=== PATIENT | male | born 1990 | race Caucasian/White ===

== ENCOUNTER 2017-10-26 17:37 | Emergency (ER) | payer OTHER ==
[~2017-10-26] VITALS: Ht 172.7 cm; Wt 79.4 kg
[~2017-10-26 17:37] MED LIST: ANTIPYRINE-BENZ10 ML OT; BACTRIM DS TAB1 EACH PO; CORTISPORIN OTI10 M2 OTIC; HYDROCODON-ACE1 EAC7 PO; KEFLEX500 MG PO; NAPROSYN500 MG PO; NOHOMEMEDICATIONS; NORCO 5-325 TA1 EACH PO; PREDNISONE 20 M20 M1 PO; PROVENTIL IH; SUDAFED30 MG PO; ZPAK PO
[2017-10-26] MEDS ORDERED: NAPROSYN500 MG PO (18:56)
== END 2017-10-26 19:00 | disposition home or self-care (01) ==
LOC: ER 17:37
DX: L02.01 Cutaneous abscess of face (principal); F17.210 Nicotine dependence, cigarettes, uncomplicated; Z88.5 Allergy status to narcotic agent

== ENCOUNTER 2020-04-03 20:44 | Emergency (ER) | payer OTHER ==
[~2020-04-03] VITALS: Ht 175.3 cm; Wt 104.3 kg
[2020-04-03] MEDS ORDERED: ADDERALL XR 3030 MG PO (21:08)
[2020-04-03 21:38] LABS: ABSOLUTE NEUTROPHILS 3.8 thou/uL (1.4-8.2); EOSINOPHILS 2.4 % (0.0-3.0); HEMATOCRIT 42.2 % (42.0-52.0); HEMOGLOBIN 14.5 gm/dL (14.0-18.0); LYMPHOCYTES 37.9 % (24.0-44.0); MCH 30.7 pg (26.0-34.0); MCHC 34.3 g/dL (28.0-37.0); MCV 89.6 fL (80.0-100.0); MONOCYTES 10.3 % (1.0-8.0); PLATELET COUNT 264 thou/uL (150-400); POLYS 48.4 % (36.0-66.0); RDW 13.3 % (10.5-14.5); WBC 7.8 thou/uL (4.0-11.0)
[2020-04-03 21:46] LABS: ANION GAP 5 mmol/L (7-16); BUN 13 mg/dL (7-18); CALCIUM 8.3 mg/dL (8.5-10.1); CHLORIDE 102 mmol/L (98-107); CO2 30 mmol/L (21-32); GLUCOSE 112 mg/dL (74-106); POTASSIUM 3.6 mmol/L (3.5-5.1); SODIUM 137 mmol/L (136-145)
[2020-04-03 21:56] LABS: ALBUMIN 3.5 g/dL (3.4-5.0); LIPASE 114 U/L (73-393); SGOT 28 U/L (15-37); SGPT 36 U/L (30-65); TOTAL BILIRUBIN 0.2 mg/dL (0.2-1.0); TOTAL PROTEIN 6.9 g/dL (6.4-8.2); TROPONIN-I <0.06 ng/mL (<0.06)
[2020-04-03 22:52] VITALS: BP 152/90
--- NOTE | 2020-04-04 08:46 | EKG ---
[facility] [place] [address] ELECTROCARDIOGRAM REPORT Name: LUCIANA LAKHANI Room #: DEP [facility]#: [id number] Admission: 04/03/20 Attend Phys: Discharge: 04/03/20 Date of : 86 Report #: [id number] THIS REPORT FOR: cc: Georgina Corona Christine L. DO Lundgren,Yaya Jenkins MD [facility] ~ THIS REPORT FOR: //name// [facility] ED Test Date: 2020-04-03 Test Time: 21:13:12 Pat Name: LUCIANA LAKHANI Department: Room: Gender: Director [employer]: kevan : 1990 Requested By: Hector Patel Order Number: [id number] MD: Yaya Jaramillo Measurements Intervals [place] Rate: 96 P: 60 DE: 146 QRS: -60 QRSD: 107 T: 44 QT: 350 QTc: 443 Interpretive Statements Sinus rhythm Left axis deviation RSR' in V1 or V2, probably normal variant Compared to ECG 07/08/2005 19:03:48 No significant change was found Electronically Signed On 04-04-2020 8:45:41 CDT by Yaya Jaramillo [email or web address] <ELECTRONICALLY SIGNED> By: Yaya Jaramillo MD, [facility] 04/04/20 0845 12 12 Yaya Jaramillo MD, [facility] /EPI
== END 2020-04-03 22:53 | disposition home or self-care (01) ==
LOC: ER 20:44
PROVIDERS: Emergency Medicine
DX: R07.89 Other chest pain (principal); R06.02 Shortness of breath; R61 Generalized hyperhidrosis; I10 Essential (primary) hypertension; F17.210 Nicotine dependence, cigarettes, uncomplicated; Z79.899 Other long term (current) drug therapy; Z88.5 Allergy status to narcotic agent; Z88.8 Allergy status to other drugs, medicaments and biological substances

== ENCOUNTER 2020-06-23 17:48 | Emergency (ER) | payer OTHER ==
[~2020-06-23] VITALS: Ht 175.3 cm; Wt 95.3 kg
[~2020-06-23 17:48] MED LIST changes: +ADDERALL XR 3030 MG PO
[2020-06-23] MEDS ORDERED: NORCO 5-325 TA1 EAC2 PO (19:56)
[2020-06-23 20:01] VITALS: BP 140/73
== END 2020-06-23 20:14 | disposition home or self-care (01) ==
LOC: ER 17:48
DX: S62.617A Displaced fracture of proximal phalanx of left little finger, initial encounter for closed fracture (principal); R07.81 Pleurodynia; F17.210 Nicotine dependence, cigarettes, uncomplicated; Z79.899 Other long term (current) drug therapy; Z88.5 Allergy status to narcotic agent; Z88.8 Allergy status to other drugs, medicaments and biological substances; W18.39XA Other fall on same level, initial encounter; Y93.89 Activity, other specified; Y92.89 Other specified places as the place of occurrence of the external cause; Y99.8 Other external cause status

== ENCOUNTER 2020-06-24 14:09 | Emergency (ER) | payer OTHER ==
[~2020-06-24] VITALS: Ht 175.3 cm; Wt 97.5 kg
[~2020-06-24 14:09] MED LIST changes: +NORCO 5-325 TA1 EAC2 PO
[2020-06-24 16:39] VITALS: BP 140/78
== END 2020-06-24 16:44 | disposition home or self-care (01) ==
LOC: ER 14:09
DX: S62.607A Fracture of unspecified phalanx of left little finger, initial encounter for closed fracture (principal); S60.455A Superficial foreign body of left ring finger, initial encounter; F17.210 Nicotine dependence, cigarettes, uncomplicated; Z79.899 Other long term (current) drug therapy; Z88.5 Allergy status to narcotic agent; Z88.8 Allergy status to other drugs, medicaments and biological substances; W49.04XA Ring or other jewelry causing external constriction, initial encounter; Y93.89 Activity, other specified; Y92.89 Other specified places as the place of occurrence of the external cause; Y99.8 Other external cause status